=== PATIENT | male | born 1995 | race Caucasian/White ===

== ENCOUNTER 2019-08-07 16:09 | Emergency (ER) | payer MEDICAID, SELFPAY ==
--- NOTE | ~2019-08-07 | CT_ITS ---
EXAMINATION: CT BRAIN W/O DATE: 08/07/2019 23:36 INDICATION: Altered mental status TECHNIQUE: Computed tomography (CT) of the head was performed without intravenous contrast. The dose- length product was 605.33 mGy-cm. COMPARISON: No prior studies for comparison. FINDINGS: Normal brain parenchymal volume for age. Normal quezada-white differentiation. No acute intrac ranial hemorrhage, infarction, mass or mass effect. No ventriculomegaly or midline shift. Midline sagittal images demonstrate a normal corpus callosum, c raniovertebral junction and sella turcica. Basilar cisterns are patent. Paranasal sinuses and mastoids are pneumatized. No depressed skull fractures. IMPRESSION: 1. No acute intracranial abnormality. Reviewed, dictated and finalized at location A.
--- NOTE | 2019-08-07 16:04 | ED.AMS ---
HPI - Altered Mental Status General Chief Complaint: Altered Mental Status <Itz Almaguer MD - Last Filed: 08/13/19 05:25> Stated Complaint: ALT MENTAL STATUS <Itz Almaguer MD - Last Filed: 08/13/19 05:25> Time Seen by Provider: 08/09/19 06:59 <Itz Almaguer MD - Last Filed: 08/13/19 05:25> History of Present Illness HPI narrative: Found lying down in a field. Unable to tell them where he was or why he was there. EMS brought him because they did not feel comfortable leaving him there. He denies any complaint, but is not able to give coherent answers. Denies alcohol or drugs. <Itz Almaguer MD - Last Filed: 08/13/19 05:25> Related Data Home Medications: Home Medications Medication Instructions Recorded Confirmed Unable to Obtain Home Medications 08/08/19 08/08/19 <Itz Almaguer MD - Last Filed: 08/13/19 05:25> Allergies/Adverse Reactions: Allergies Allergy/AdvReac Type Severity Reaction Status Date / Time No Known Allergies Allergy Verified 08/07/19 16:46 <Itz Almaguer MD - Last Filed: 08/13/19 05:25> Review of Systems Review of Systems: ROS unobtainable: Yes unobtainable due to mental status <Itz Almaguer MD - Last Filed: 08/13/19 05:25> Exam Const: General: no acute distress, alert and confusion <Itz Almaguer MD - Last Filed: 08/13/19 05:25> Nutritional Appearance: well nourished <Itz Almaguer MD - Last Filed: 08/13/19 05:25> Other: Oriented x2 <Itz Almaguer MD - Last Filed: 08/13/19 05:25> HENMT: Mouth: Yes dry mucous membranes <Itz Almaguer MD - Last Filed: 08/13/19 05:25> Eyes: Conjunctivae: conjunctivae normal <Itz Almaguer MD - Last Filed: 08/13/19 05:25> Pupils: Equal, round and reactive pupils present <Itz Almaguer MD - Last Filed: 08/13/19 05:25> EOM: EOMs intact bilaterally <Itz Almaguer MD - Last Filed: 08/13/19 05:25> Resp: Effort & Inspection: normal respiratory effort <Itz Almaguer MD - Last Filed: 08/13/19 05:25> Auscultation: clear to auscultation bilaterally <Itz Almaguer MD - Last Filed: 08/13/19 05:25> Cardio: Rate: regular rate <Itz Almaguer MD - Last Filed: 08/13/19 05:25> Rhythm: regular rhythm <Itz Almaguer MD - Last Filed: 08/13/19 05:25> GI: GI Palp: Yes Soft to palpation and No Tenderness to palpation present (GI) <Itz Almaguer MD - Last Filed: 08/13/19 05:25> Skin: General skin exam: normal color <Itz Almaguer MD - Last Filed: 08/13/19 05:25> Rashes: no rashes <Itz Almaguer MD - Last Filed: 08/13/19 05:25> Neuro: General: moves all extremities, no focal motor deficits and CN's II-XI intact bilaterally <Itz Almaguer MD - Last Filed: 08/13/19 05:25> Speech: normal speech <Itz Almaguer MD - Last Filed: 08/13/19 05:25> Extrem: General: normal to inspection <tIz Almaguer MD - Last Filed: 08/13/19 05:25> Psych: Appearance: disheveled <Itz Almaguer MD - Last Filed: 08/13/19 05:25> Course Course Emergency Course: Care turned over to myself at shift change. Patient seen and evaluated myself. Agree with initial H&P Patient remained in room overnight currently awaiting placement care will be turned back over to Dr. Almaguer at shift change 08/08/2019 1900: Patient's care turned back over to myself at shift change. Patient seen and evaluated by myself. Agree with initial H&P. Daniella yoo [place] currently present reevaluate the patient with plan for placement we will continue to monitor at this time 08/09/2019 191 patient's care turned back over myself at shift change seen evaluate myself agree with initial H&P. Patient been evaluated by [facility] at this time still seeking placement <Rito Raines, - Last Filed: 08/10/19 02:49> Reevaluation(s) Reevaluation #3: Patient has been accepted to [facility] for psychiatric care.
[2019-08-07 16:22] LABS: Basophils Absolute Auto 0.1 K/mm3 (0.0-0.1); Eosinophils Absolute Auto 0.1 K/mm3 (0-0.3); Eosinophils Percent Auto 1.9 % (0-4.4); Hematocrit 46.8 % (42.0-52.0); Hemoglobin 15.9 g/dL (14.0-18.0); Immature Granulocyte Absolute 0.01 K/mm3 (0.00-0.031); Immature Granulocyte Percent A 0.1 % (0-0.5); Lymphocytes Absolute Auto 2.32 K/mm3 (0.9-3.2); Lymphocytes Percent Auto 34.7 % (18.3-44.2); Mean Corpuscular Hemoglobin 29.1 pg (26-34); Mean Corpuscular Volume 85.7 fl (80-100); Mean Platelet Volume 9.2 fl (7.4-10.4); Monocytes Absolute Auto 0.7 K/mm3 (0.1-0.6); Monocytes Percent Auto 10.8 % (2.6-8.5); Neutrophils Absolute Auto 3.4 K/mm3 (1.3-6.7); Neutrophils Percent Auto 51.5 % (45.5-73.1); Platelet Count Result 386 k/mm3 (150-375); Red Blood Count 5.46 M/mm3 (4.6-6.20); Red Cell Distribution Width 13.2 % (11.5-14.5); White Blood Count 6.7 K/mm3 (4.5-10.0)
[2019-08-07 16:35] LABS: Alanine Aminotransferase 17 U/L (4-50); Albumin Level 4.1 g/dL (3.5-5.1); Alkaline Phosphatase 97 U/L (38-126); Aspartate Amino Transferase 29 U/L (17-59); Bilirubin,Total 0.6 mg/dL (0.2-1.3); Blood Urea Nitrogen 13 mg/dL (9-20); Calcium 9.3 mg/dL (8.4-10.2); Carbon Dioxide 28 mmol/L (22-30); Chloride 105 mmol/L (98-107); Estimated Glomerular Filt Rate > 60; Glucose 95 mg/dL (75-110); Potassium 4.2 mmol/L (3.4-5.0); Sodium 139 mmol/L (137-145)
[2019-08-07 16:37] VITALS: BP 136/74; PULSE 96; RESP 14; TEMP 36.9; O2SAT 99
[2019-08-07] MEDS: SODIUM CHLORIDE 0.9% IV 1,000 ML 999 ML IV CONT (16:40)
--- NOTE | 2019-08-07 16:41 | PC.NURSE ---
Walked into Pt. room to find Pt. with pants down to their knees, genitals exposed, laying on their side with their phone. Pt. advised this is inappropriate and needs to pull his pants up and Pt. complied. Pt. advised to pee in urinal and would refuse. Give verbal orders by EDP to straight cath pt. Informed Pt. of straight cath because they are altered and Pt. refused. Pt. informed that it will be done and Pt. urinated into the urinal with no issues. Pt. told to keep their pants on. Will continue to monitor.
[2019-08-07 16:43] VITALS: RESP 14; O2SAT 99
[2019-08-07 16:46] LABS: Ethanol < 10 mg/dL (<10)
[2019-08-07 16:48] LABS: Add Urine Microscopic? YES; Appearance Urine Clear (Clear); Bilirubin Urine Negative (Negative); Blood Urine Negative (Negative); Color Urine Yellow (Yellow); Glucose Urine UA Negative (Negative); Ketones Urine Negative (Negative); Leukocyte Esterase Ur Trace LEU/UL (Negative); Mucus Urine Rare /lpf; Nitrate Urine Negative (Negative); Protein Urine Negative (Negative); RBC Urine 0-2 /hpf (0-2); Specific Grav Ur 1.024 (1.001-1.035); Urobilinogen Urine Negative mg/dL (<2.0); WBC Urine 0-3 /hpf
[2019-08-07 17:07] LABS: Amphetamine Screen Urine Negative (Negative); Barbiturate Screen Urine Negative (Negative); Benzodiazepines Screen Urine Negative (Negative); Cannabinoid Screen Urine Negative (Negative); Cocaine Screen Urine Negative (Negative); Methadone Screen Urine Negative (Negative); Opiate Screen Urine Negative (Negative); Phencyclidine Screen Urine Negative (Negative)
--- NOTE | 2019-08-07 17:51 | PC.NURSE ---
Called Daniella from crisis to have Pt. evaluated.
--- NOTE | 2019-08-07 17:51 | PC.NURSE ---
Pt. attempting to expose themselves and masturbate and has scolded multiple times to correct behavior. Pt. complies.
[2019-08-07 19:19] VITALS: BP 130/70; PULSE 70; RESP 14; O2SAT 99
--- NOTE | 2019-08-07 20:42 | PC.NURSE ---
paperwork [facility]ed to [facility], and [facility] this [facility]. [facility] called and spoke to rn for more information on patient.
--- NOTE | 2019-08-07 21:53 | PC.NURSE ---
[facility]HA[facility] DECLINED PATIENT AT THIS TIME.
--- NOTE | 2019-08-07 22:27 | PC.NURSE ---
Per Norma at [place], she will notify a provider & call back.
--- NOTE | 2019-08-07 22:51 | PC.NURSE ---
[facility] CALLED STATED THAT THEY WERE UNABLE TO MEET PATIENTS NEEDS AT THIS TIME. EDP AND PHOTOGRAPHIC SUPERVISOR NOTIFIED.
--- NOTE | 2019-08-08 02:21 | PC.NURSE ---
06/07/19 @ 2219: Spoke with Devorah @ [facility] to confirm they received patient information that had been faxed. Devorah said that no one was working with them on placement and that they have no male beds available at this time, so, therefore, since no one was working on the placement the paperwork should not have been faxed to them. I asked again if they had received it, she said NO. I asked her name again, she told me Devorah, and hung up.
[2019-08-08 05:22] VITALS: BP 129/67; PULSE 67; RESP 18; O2SAT 100
[2019-08-08 09:08] VITALS: BP 109/72; PULSE 74; RESP 18; TEMP 36.7; O2SAT 100
--- NOTE | 2019-08-08 09:09 | PC.NURSE ---
Patient placed in green scrubs and belongings inventoried and placed in lock box. Patient requesting breakfast at this time, safety tray ordered.
--- NOTE | 2019-08-08 09:20 | PC.NURSE ---
Offered patient a shower, refused at this time.
--- NOTE | 2019-08-08 18:17 | PC.NURSE ---
Patient layed down on floor, resting comfortably. Advised patient to lay in bed. Sitter at bedside.
--- NOTE | 2019-08-08 19:30 | PC.NURSE ---
Daniella from Crisis here attempting to find placement.
--- NOTE | 2019-08-08 21:54 | PC.NURSE ---
Tamia from [facility] called to advise [facility] declined patient placement at this time.
[2019-08-08 22:10] VITALS: BP 110/66; PULSE 86; RESP 18; O2SAT 100
--- NOTE | 2019-08-08 22:44 | PC.NURSE ---
Tamia from Crisis called and advised [facility] does not have any beds tonight, but will consider placement tomorrow. Requesting paperwork be faxed to .
[2019-08-09 06:22] VITALS: BP 100/61; PULSE 80; RESP 18; TEMP 36.9; O2SAT 100
--- NOTE | 2019-08-09 07:11 | PC.NURSE ---
Report received from RADHA Tinoco, to continue care.
--- NOTE | 2019-08-09 07:12 | PC.NURSE ---
Dietary called, breakfast tray ordered. Report given to RADHA Manzanares.
--- NOTE | 2019-08-09 08:15 | PC.NURSE ---
Pt resting on stretcher. Cooperative with treatment and states that he understands that he's awaiting bed placement. Sitter remains in place per protocol. Denies needs at present.
--- NOTE | 2019-08-09 09:21 | PC.NURSE ---
Pt accompanied by security x2 upstairs to take a shower. New scrubs provided to patient.
--- NOTE | 2019-08-09 10:10 | PC.NURSE ---
Pt returns to ED Rm 15. Status unchanged. Sitter at bedside resumed.
--- NOTE | 2019-08-09 15:32 | PC.NURSE ---
Staff from [facility] returns call and states that because patient has out of state insurance cannot accept pt.
--- NOTE | 2019-08-09 16:15 | PC.NURSE ---
Pt appears asleep on stretcher. Pt has not had requests or complaints per sitter who remains at bedside.
--- NOTE | 2019-08-09 17:35 | PC.NURSE ---
No change in patient status. Crisis to return to ED to reevaluate patient by 1929 per Jovani Herring RN.
[2019-08-09 18:44] VITALS: BP 127/72; PULSE 68; RESP 16; TEMP 36.8; O2SAT 98
--- NOTE | 2019-08-09 19:28 | PC.NURSE ---
Report to RADHA Boyer, to continue care. Crisis here to reevaluate the patient.
[2019-08-09 19:42] VITALS: BP 115/89; PULSE 70; RESP 16; TEMP 36.7; O2SAT 98
--- NOTE | 2019-08-09 20:01 | PC.NURSE ---
spoke to mario at [facility] [facility]. informed her i will be faxing paperwork soon.
--- NOTE | 2019-08-09 22:18 | PC.NURSE ---
[facility] states [facility] not [facility] pt due to pt acuity. md notified.
--- NOTE | 2019-08-09 22:23 | PC.NURSE ---
this rn called crisis to let them know [facility] didnt accept pt, no answer. this rn left voicemail.
--- NOTE | 2019-08-09 23:00 | PC.NURSE ---
this rn called crisis again and informed them on pt status. they state they will again try to find placement status and will call me back. notified.
--- NOTE | 2019-08-09 23:58 | PC.NURSE ---
pt in room with lights dimmed. sitter at bedside. pt cooperative at this time.
--- NOTE | 2019-08-10 02:07 | PC.NURSE ---
pt in room, lights dimmed. sitter at bedside. pt cooperative w/ no requests at this time.
--- NOTE | 2019-08-10 03:09 | PC.NURSE ---
pt in bed w/ lights dimmed at this time. this rn still waiting for call from crisis in AM. pt cooperative at this time. no requests from pt.
[2019-08-10 03:50] VITALS: BP 105/80; PULSE 86; RESP 18; TEMP 37.2; O2SAT 100
--- NOTE | 2019-08-10 03:51 | PC.NURSE ---
pt offered a drink and a blanket, pt refused both.
--- NOTE | 2019-08-10 06:02 | PC.NURSE ---
pt offered drink, food at this time. pt states he isn't hungry or thirsty. pt cooperative at this time. sitter at bedside.
--- NOTE | 2019-08-10 07:10 | PC.NURSE ---
this rn gave report to roxane muhammad.
[2019-08-10 14:20] LABS: Basophils Absolute Auto 0.1 K/mm3 (0.0-0.1); Basophils Percent Auto 0.9 % (0.2-1.2); Eosinophils Absolute Auto 0.2 K/mm3 (0-0.3); Hematocrit 47.8 % (42.0-52.0); Hemoglobin 15.9 g/dL (14.0-18.0); Immature Granulocyte Absolute 0.02 K/mm3 (0.00-0.031); Immature Granulocyte Percent A 0.3 % (0-0.5); Lymphocytes Absolute Auto 2.47 K/mm3 (0.9-3.2); Lymphocytes Percent Auto 31.3 % (18.3-44.2); Mean Corpuscular HGB Conc 33.3 g/dl (32-36); Mean Corpuscular Volume 87.1 fl (80-100); Mean Platelet Volume 9.2 fl (7.4-10.4); Monocytes Absolute Auto 0.9 K/mm3 (0.1-0.6); Monocytes Percent Auto 11.5 % (2.6-8.5); Neutrophils Absolute Auto 4.3 K/mm3 (1.3-6.7); Platelet Count Result 373 k/mm3 (150-375); Red Blood Count 5.49 M/mm3 (4.6-6.20); Red Cell Distribution Width 13.3 % (11.5-14.5); White Blood Count 7.9 K/mm3 (4.5-10.0)
[2019-08-10 14:33] LABS: Alanine Aminotransferase 14 U/L (4-50); Alkaline Phosphatase 101 U/L (38-126); Aspartate Amino Transferase 20 U/L (17-59); Bilirubin,Total 0.3 mg/dL (0.2-1.3); Blood Urea Nitrogen 16 mg/dL (9-20); Calcium 9.2 mg/dL (8.4-10.2); Carbon Dioxide 27 mmol/L (22-30); Chloride 105 mmol/L (98-107); Estimated CRCL calculation 111 ml/min; Estimated Glomerular Filt Rate > 60; Glucose 97 mg/dL (75-110); Potassium 4.2 mmol/L (3.4-5.0); Sodium 137 mmol/L (137-145)
[2019-08-10 15:18] VITALS: BP 131/89; PULSE 96; RESP 18; TEMP 37.6; O2SAT 100
--- NOTE | 2019-08-10 15:39 | PC.NURSE ---
[facility] accepted transfer request ETA [id number]
[2019-08-11 14:36] LABS: SARS-CoV-2 RNA PCR Negative
== END 2019-08-10 16:23 ==
PROVIDERS: Emergency Medicine; Emergency Provider Emergency Medicine
DX: F29 Unspecified psychosis not due to a substance or known physiological condition (principal); Z11.59 Encounter for screening for other viral diseases
CPT/HCPCS: 36415; 70450; 80053; 80307; 81001; 84443; 85025; 87635; 96360; 99285; C9803; J7030; U0003